=== PATIENT | female | born 1980 ===

== ENCOUNTER → 2018-04-05 | Outpatient (REF) | payer BC, OTHER ==
[~2018-04-05] MED LIST: ACYC-50 PO; CALC-770 PO; CHOL400C10 PO; HYDR25SU35 RC; MULT-885 PO; multivitamin
== END ==
LOC: ZZSENDIN 12:00
PROVIDERS: ATTEND Physician Assistant Medical
DX: D22.5 Melanocytic nevi of trunk (principal)
CPT/HCPCS: 88305

== ENCOUNTER → 2018-04-25 | Outpatient (CLI) | payer BC ==
--- NOTE | 2018-04-26 08:20 | RADIOLOGY IMAGING REPORT ---
FACILITY: [facility] PATIENT NAME: ELISEO OATES : [id number] MR: [id number] V: [id number] EXAM DATE: [id number] ORDERING PHYSICIAN: KRISTIAN FORREST TECHNOLOGIST: Nirali Portillo PROCEDURE:BILATERAL DIGITAL SCREENING MAMMOGRAM WITH CAD ASSISTED INTERPRETATION & 3D TOMOSYNTHESIS COMPARISON:None. This is the patient's baseline mammogram. INDICATIONS:screening FINDINGS: Dense heterogeneous fibroglandular tissue is seen throughout the breasts. In the upper portion of the Right breast posterior 1/3 on the Right MLO view there is an ovoid area of increased density. This likely represents an incidental lymph node although confirmation with Right breast Ultrasound is recommended. DIAGNOSTIC CATEGORY 0--INCOMPLETE: NEED ADDITIONAL IMAGING EVALUATION. RECOMMENDATIONS: ULTRASOUND: RIGHT BREAST. IMPRESSION: BIRADS 0: Incomplete. Right breast Ultrasound is recommended to evaluate the ovoid area of increased density in the upper posterior portion of the Right breast on the Right MLO view which likely represents an incidental lymph node although a confirmation is suggested. Dictated by: Lay Hancock M.D. on 04/25/2018 at 16:19 Transcribed by: WILBER on 04/25/2018 at 16:30 Approved by: Lay Hancock M.D. on 04/26/2018 at 8:19 [facility]
== END ==
LOC: MAMO 01:46
PROVIDERS: ATTEND Family Medicine
DX: Z12.31 Encounter for screening mammogram for malignant neoplasm of breast (principal); R92.8 Other abnormal and inconclusive findings on diagnostic imaging of breast
CPT/HCPCS: 77063; 77067